=== PATIENT | female | born 1995 | race Caucasian/White ===

== ENCOUNTER 2018-06-05 17:44 | Emergency (ER) | payer OTHER ==
[2018-06-05 19:04] LABS: URINE BLOOD (Dip) POC Trace-intact (NEGATIVE); URINE GLUCOSE (Dip) POC Negative (NEGATIVE); URINE KETONES (Dip) POC Negative (NEGATIVE); URINE LEUKOCYTE EST (Dip) POC Trace (NEGATIVE); URINE NITRITE (Dip) POC Negative (NEGATIVE); URINE TOTAL PROTEIN POC Negative (NEGATIVE)
[2018-06-05] MEDS: AZITHROMYCIN 250 MG TAB PO (22:21)
== END 2018-06-05 22:39 | disposition home or self-care (01) ==
LOC: FTE 22:39
DX: A63.0 Anogenital (venereal) warts (principal); R40.2412 Glasgow coma scale score 13-15, at arrival to emergency department; Z86.19 Personal history of other infectious and parasitic diseases
CPT/HCPCS: 81003; 81025; 87070; 87081; 87086; 87220; 99284